=== PATIENT | female | born 1960 | race Caucasian/White ===

== ENCOUNTER 2024-09-30 12:56 | Emergency (ER) | payer OTHER ==
[~2024-09-30] VITALS: Ht 162.6 cm; Wt 96.0 kg
[2024-09-30 15:13] LABS: PLATELET COUNT (AUTO) 240 K/uL (150-450); RED BLOOD CELL COUNT(AUTO) 4.57 MIL/uL (4.00-5.20); RED CELL DISTRIBUTION WIDTH 14.5 % (11.5-14.5); WHITE BLOOD COUNT (AUTO) 11.7 K/uL (4.5-11.0)
[2024-09-30 15:19] LABS: CALCIUM, TOTAL 8.8 mg/dL (8.8-10.5); CREATININE 0.92 mg/dL (0.60-1.30); GLOMERULAR FILTR. RATE CALC > 60 mL/min (>60); GLUCOSE,RANDOM 100 mg/dL (70-110); SODIUM SERUM 136 mmol/L (136-145); UREA NITROGEN, BLOOD 16 mg/dL (7-18)
[2024-09-30] MEDS: MECLIZINE HCL 25 MG TABLET PO ONE (15:20)
[2024-09-30] MEDS: KETOROLAC TROMETHAMINE 60 MG/2 ML VIAL IM ONE (15:21)
[2024-09-30 15:29] LABS: TROPONIN I-HIGH SENSITIVITY 20 ng/L (<51)
[2024-09-30] MEDS ORDERED: ACET-66 PO (16:15)
[2024-09-30] MEDS ORDERED: LORA1TAB25 PO (16:15)
[2024-09-30] MEDS ORDERED: MECL-134 PO (16:15)
[2024-09-30 16:22] VITALS: BP 135/78; PULSE 80; RESP 16; TEMP 99.705416; O2SAT 98
== END 2024-09-30 16:33 | disposition home or self-care (01) ==
LOC: EMS 12:56
DX: R51.9 Headache, unspecified (principal); R07.89 Other chest pain; F41.9 Anxiety disorder, unspecified; I10 Essential (primary) hypertension; E78.00 Pure hypercholesterolemia, unspecified; F32.A Depression, unspecified; F17.210 Nicotine dependence, cigarettes, uncomplicated; Z87.442 Personal history of urinary calculi
CPT/HCPCS: 99283; 80048; 84484; 85025; 36415; 96372; J1885